=== PATIENT | female | born 1965 | race Caucasian/White ===

== ENCOUNTER 2019-03-20 15:02 | Outpatient (CLI) | payer OTHER ==
--- NOTE | 2019-03-20 16:03 | XRay Report ---
CHEST 2 VIEWS INDICATION: NONSPECIFIC REACTION TB SKIN TEST. COMPARISON: None FINDINGS: Support devices: None. Heart: Within normal limits. Lungs/pleura: No acute air space or interstitial disease. No pneumothorax. 1 cm calcified granuloma is noted at the right apex. Additional findings: None. IMPRESSION: No acute findings. Chronic granulomatous disease. Signer Name: Jose Farr Jr, MD Signed: 03/20/2019 3:59 PM Workstation Name: [id number]
== END 2019-03-20 15:03 | disposition home or self-care (01) ==
LOC: XRAY 15:02
PROVIDERS: ATTEND Advanced Practice Midwife
DX: J84.10 Pulmonary fibrosis, unspecified (principal); R76.11 Nonspecific reaction to tuberculin skin test without active tuberculosis
CPT/HCPCS: 71046